=== PATIENT | female | born 1985 | race Caucasian/White ===

== ENCOUNTER 2018-10-03 17:19 | Inpatient (IN) ==
[2018-10-03] MEDS ORDERED: THIAMINE INJ 100 MG, FOLIC ACID INJ 1 MG, MULTIVITAMIN INJ 10 ML in SODIUM CHLORIDE 0.9... IV ONE (18:28)
[2018-10-03] MEDS ORDERED: hydrOXYzine HCL 25 MG/1 ML VIAL IM PRN (18:28)
[2018-10-03] MEDS ORDERED: ACETAMINOPHEN 325 MG TABLET PO PRN (18:30)
[2018-10-03] MEDS ORDERED: PROMETHAZINE 25 MG TABLET PO PRN (18:30)
[2018-10-03] MEDS: chlordiazePOXIDE 25 MG CAPSULE PO SCH (18:43)
[2018-10-03 19:43] LABS: Basophils % 0.4 % (0.0-0.8); Eosinophils # 0.1 10*3/uL (0.0-0.87); Eosinophils % 1.3 % (0.00-10.9); Hematocrit 40.8 VOL% (35.7-47.0); Hemoglobin 13.3 GM/DL (12.0-16.0); Immature Granulocytes % 0.3 %; Immature Granulocytes Absolute 0.02 #; Lymphocytes # 1.9 10*3/uL (1.4-4.0); Lymphocytes % 28.3 % (21.3-54.2); Mean Corpuscular HGB Conc 32.6 GM/DL (32-36); Mean Corpuscular Volume 87.4 FL (87-102); Mean Platelet Volume 10.9 FL (9.6-12.0); Monocytes % 8.1 % (1.7-12.7); Neutrophils % 61.6 % (38.7-73.9); Platelet Count 222 T/CUMM (130-400); Red Blood Count 4.67 MC/CUMM (3.8-5.5); Red Cell Distribution Width 13.3 % (9.3-17.3); White Blood Count 6.7 T/CUMM (4-12)
[2018-10-03 19:45] LABS: Bilirubin,Total 0.7 MG/DL (0.2-1.0); Calcium 8.6 MG/DL (8.5-10.1); Osmolality,Calculated 276.5 MOS/KG (273-304); Total Protein 7.2 G/DL (6.4-8.3)
[2018-10-03] MEDS: DICYCLOMINE 10 MG CAPSULE PO PRN (20:12)
[2018-10-03] MEDS: HydrOXYzine PAMOATE 25 MG CAPSULE PO PRN (20:12)
[2018-10-03 22:59] LABS: Apearance,Urine CLOUDY (Clear); Bilirubin,Urine Negative (Negative); Blood, Urine Negative (Negative); Glucose,Urine (UA) Negative (Negative); Ketones,Urine Negative (Negative); Mucus,Urine Few /LPF (Occasional); Nitrite,Urine Negative (Negative); Protein,Urine Negative; RBC,Urine 1 /HPF (0-4); Squamous Epithelial Cell,Urine Many /HPF (0-10); Urine Color Yellow (Yellow); Urine Specific Gravity 1.021 (1.001-1.035); Urine Urobilinogen < 2.0 EU/DL (0.2-1.0); WBC,Urine 2 /HPF (0-6)
[2018-10-04] MEDS: chlordiazePOXIDE 25 MG CAPSULE PO SCH ×4 (00:05→17:33)
[2018-10-04] MEDS: rOPINIRole 1 MG TABLET PO PRN ×2 (00:05→17:33)
[2018-10-04] MEDS ORDERED: POTASSIUM CHLORIDE 20 MEQ TABLET PO PRN (09:03)
[2018-10-04] MEDS ORDERED: POTASSIUM CHLORIDE 20 MEQ TABLET PO ONE (10:54)
[2018-10-04] MEDS: HydrOXYzine PAMOATE 25 MG CAPSULE PO PRN (12:17)
[2018-10-04] MEDS: METHOCARBAMOL 750 MG TABLET PO PRN (17:33)
[2018-10-04] MEDS: cloNIDine 0.1 MG TABLET PO PRN (20:33)
[2018-10-05] MEDS: chlordiazePOXIDE 25 MG CAPSULE PO SCH ×3 (01:51→18:40)
[2018-10-05 05:26] LABS: Calcium 8.4 MG/DL (8.5-10.1); Osmolality,Calculated 280.3 MOS/KG (273-304)
[2018-10-05] MEDS: DICYCLOMINE 10 MG CAPSULE PO PRN (19:03)
[2018-10-06] MEDS: chlordiazePOXIDE 25 MG CAPSULE PO SCH ×2 (02:25→11:03)
[2018-10-06] MEDS: HydrOXYzine PAMOATE 25 MG CAPSULE PO PRN (02:28)
[2018-10-06] MEDS: METHOCARBAMOL 750 MG TABLET PO PRN (07:31)
[2018-10-06] MEDS: cloNIDine 0.1 MG TABLET PO PRN (07:31)
[2018-10-06 11:31] VITALS: BP 97/63
== END 2018-10-06 13:30 | disposition home or self-care (01) | DRG 772 ==
LOC: N.4E 17:39 → SUATTDRO 18:30
PROVIDERS: ADMIT Internal Medicine; ATTEND Internal Medicine